=== PATIENT | female | born 1960 | race Caucasian/White ===

== ENCOUNTER 2019-03-06 08:27 | Emergency (ER) | payer OTHER | END 2019-03-06 09:33 | disposition home or self-care (01) | LOC: FTE 09:33 | DX: H10.9 Unspecified conjunctivitis (principal) | CPT/HCPCS: 99283; Z7502 ==

== ENCOUNTER 2019-03-11 21:06 | Emergency (ER) | payer OTHER | END 2019-03-11 23:47 | disposition home or self-care (01) | LOC: FTE 21:06 | DX: H10.9 Unspecified conjunctivitis (principal) | CPT/HCPCS: 99282; Z7502 ==